=== PATIENT | female | born 1970 | race Caucasian/White ===

== ENCOUNTER 2022-02-18 16:18 | Emergency (ER) | payer SELFPAY ==
[~2022-02-18] VITALS: Ht 165.1 cm; Wt 59.0 kg
[2022-02-18 16:19] VITALS: BP_SYST 109
== END 2022-02-18 17:31 | disposition home or self-care (01) ==
LOC: SED 16:18
DX: U07.1 COVID-19 (principal); Z88.1 Allergy status to other antibiotic agents; Z88.8 Allergy status to other drugs, medicaments and biological substances
CPT/HCPCS: 99281

== ENCOUNTER 2022-07-21 06:52 | Emergency (ER) | payer BC ==
[~2022-07-21] VITALS: Ht 167.6 cm; Wt 59.9 kg
[2022-07-21 07:19] VITALS: BP_SYST 155
--- NOTE | 2022-07-21 07:23 | NUR ---
Patient to ER bed H1 to gown for evaluation. Side rails up. Report given to CHRISTIE VILLALOBOS.
--- NOTE | 2022-07-21 07:25 | NUR ---
ER at bedside examining patient.
--- NOTE | 2022-07-21 07:27 | NUR ---
Pt bib self from home. CC dizziness. tingly hot hands post intercourse. Skin intact, slight headache to right parietal lobe. Pt notes High blood pressure readingPt notes familial history of cardiac disease prompts ER visit. Pt is aaox3, denies SOB, denies NVD cap refill<3sec., pt is NAD.
--- NOTE | 2022-07-21 07:53 | NUR ---
Phlebotomy bedside collecting blood draw.
--- NOTE | 2022-07-21 07:57 | NUR ---
EKg by EMT bedside . Pt cooperates.
--- NOTE | 2022-07-21 07:57 | NUR ---
Urine specimen collected delivered to lab.
[2022-07-21 08:02] LABS: BASOPHILS # (AUTO) 0.1 K/uL (0.0-0.2); BASOPHILS % (AUTO) 1.6 % (0.0-2.0); EOSINOPHILS # (AUTO) 0.2 K/uL (0.0-0.4); EOSINOPHILS % (AUTO) 2.4 % (0.0-4.0); HEMATOCRIT 44.7 % (36-48); LYMPHOCYTES # (AUTO) 1.8 K/uL (1.0-5.5); LYMPHOCYTES % (AUTO) 23.3 % (20.5-51.5); MEAN CORPUSCULAR HEMOGLOBIN 36 pg (27-31); MEAN CORPUSCULAR HGB CONC 36 % (32-36); MEAN CORPUSCULAR VOLUME 101 fL (79.0-98.0); MONOCYTES # (AUTO) 1.1 K/uL (0.0-1.0); MONOCYTES % (AUTO) 14.5 % (1.7-9.3); NEUTROPHILS # (AUTO) 4.6 K/uL (1.8-7.7); NEUTROPHILS % (AUTO) 58.2 % (40.0-70.0); PLATELET COUNT (AUTO) 436 K/uL (130-430); RED BLOOD CELL COUNT(AUTO) 4.43 MIL/uL (4.2-6.2); RED CELL DISTRIBUTION WIDTH 14.1 % (9.0-15.0); WHITE BLOOD COUNT (AUTO) 7.9 K/uL (4.8-10.8)
[2022-07-21 08:03] LABS: BILIRUBIN,URINE NEGATIVE (NEGATIVE); BLOOD, URINE 2+ (NEGATIVE); CLARITY/URINE CLEAR (CLEAR); COLOR,URINE YELLOW (YELLOW); GLUCOSE,URINE NEGATIVE (NEGATIVE); KETONES,URINE NEGATIVE (NEGATIVE); LEUKOCYTE ESTERASE ,URINE NEGATIVE (NEGATIVE); NITRITE, URINE NEGATIVE (NEGATIVE); PROTEIN URINE NEGATIVE (NEGATIVE); UROBILINOGEN,URINE 0.2 (0.2-1.0)
[2022-07-21 08:12] LABS: BACTERIA,URINE None Seen /HPF (None Seen); MUCUS,URINE None Seen /LPF (None Seen); WBC,URINE 0-3 /HPF (0-3)
[2022-07-21 08:15] LABS: ANION GAP 6 (5-15); CALCIUM 9.4 mg/dL (8.4-11.0); CHLORIDE 105 mmol/L (98-107); CREATININE 0.84 mg/dL (0.55-1.30); GLUCOSE 106 mg/dL (70-99); UREA NITROGEN, BLOOD 13 mg/dL (8-21)
--- NOTE | 2022-07-21 08:19 | NUR ---
Blood pressure: read standing 145/92 Blood pressure: read in seated position 146/87 Blood pressure: supine 137/77 JAMES Villanueva checked multiple BPs
[2022-07-21 08:28] LABS: ALANINE AMINOTRANSFERASE 26 U/L (12-78); ASPARTATE AMINOTRANSFERASE 25 U/L (10-37); TOTAL BILIRUBIN 0.5 mg/dL (0.0-1.0)
[2022-07-21 08:29] LABS: GFR AFRICAN AMERICAN 92 mL/min (>90)
[2022-07-21 09:13] VITALS: BP_SYST 137
--- NOTE | 2022-07-21 09:20 | NUR ---
Patient given written and verbal discharge instructions and verbalizes understanding. ER MD discussed with patient the results and treatment provided. Patient in stable condition. ID arm band removed. IV catheter removed intact and dressing applied, no active bleeding. Opportunity for questions provided and answered. Medication side effect fact sheet provided.
== END 2022-07-21 09:20 | disposition home or self-care (01) ==
LOC: SED 06:52
DX: G43.909 Migraine, unspecified, not intractable, without status migrainosus (principal); R42 Dizziness and giddiness; Z88.1 Allergy status to other antibiotic agents; Z88.2 Allergy status to sulfonamides; Z88.8 Allergy status to other drugs, medicaments and biological substances; Z79.899 Other long term (current) drug therapy
CPT/HCPCS: 36415; 70450-TC; 76376; 80053; 81000; 84484; 85025; 99284